=== PATIENT | male | born 1980 | race Caucasian/White ===

== ENCOUNTER 2024-12-21 14:29 | Outpatient (CLI) | payer BC ==
[~2024-12-21] VITALS: Ht 172.7 cm; Wt 142.9 kg
[2024-12-21] MEDS ORDERED: ATOR10TA70 PO (14:52)
--- NOTE | 2024-12-21 15:13 | ELECTROCARDIOGRAPH REPORT ---
[facility] Test Date: 2024-12-21 Test Time: 15:08:03 Pat Name: MING HELLER Department: [facility]-PRE-OP Patient ID: [id number] Room: Gender: M [employer]: : 1980 Requested By: YANI MACDONALD Order Number: [id number] Reading MD: Dr. YANET Dow Measurements Intervals [place] Rate: 73 P: -1 ME: 159 QRS: 65 QRSD: 91 T: 38 QT: 394 QTc: 435 Interpretive Statements Sinus rhythm Electronically Signed On 12-21-2024 17:27:[address] YANET Dow Please click the below link to view image of tracing.
[2024-12-21 15:37] LABS: MEAN PLATELET VOLUME 7.4 FL (7.4-10.4); PRE OP HEMATOCRIT 43.4 % (42.0-52.0); PRE OP HEMOGLOBIN 15.1 g/dL (14.0-17.9); PRE OP PLATELET COUNT 304 X10'3 (140-440); PRE OP WHITE BLOOD COUNT 9.2 10'3 (4.8-10.8); RED CELL DISTRIBUTION WIDTH 12.8 % (11.5-14.5)
[2024-12-21 15:55] LABS: CREATININE 0.90 MG/DL (0.60-1.10); PRE OP ALT 61 U/L (30-65); PRE OP ANION GAP 8 (8-16); PRE OP AST 32 U/L (10-37); PRE OP BILIRUB, TOTAL 0.7 MG/DL (0.0-1.0); PRE OP GLUCOSE 107 MG/DL (70-104); PRE OP POTASSIUM 4.0 MMOL/L (3.4-5.1); PRE OP SODIUM 136 MMOL/L (135-145); TOTAL CARBON DIOXIDE 25.6 MMOL/L (24-32); eGFR > 90 ML/MIN
[2024-12-23] MEDS ORDERED: ringers solution, lacted 1,000 ML IV SCH (05:30)
[2024-12-23] MEDS ORDERED: Cefazolin 3 GM/100ML NS IVPB 100 ML IV ONE (05:30)
== END 2024-12-21 23:59 | disposition home or self-care (01) ==
LOC: LAB 14:29 → EDSTATUS 12-23 13:30
PROVIDERS: ATTEND Surgery
DX: Z01.818 Encounter for other preprocedural examination (principal); K43.0 Incisional hernia with obstruction, without gangrene; E78.00 Pure hypercholesterolemia, unspecified; E66.9 Obesity, unspecified; Z87.891 Personal history of nicotine dependence; Z79.899 Other long term (current) drug therapy; Z90.49 Acquired absence of other specified parts of digestive tract; Z68.42 Body mass index [BMI] 45.0-49.9, adult
CPT/HCPCS: 36415; 80053; 85025; 93005; J0690; J7120